=== PATIENT | male | born 1970 | race Caucasian/White ===

== ENCOUNTER 2016-08-28 01:22 | Emergency (ER) | payer SELFPAY ==
[~2016-08-28] VITALS: Ht 162.6 cm; Wt 68.9 kg
[2016-08-28] MEDS ORDERED: NKM (01:27)
[2016-08-28 01:35] VITALS: BP 123/61
[2016-08-28] MEDS ORDERED: ANUSOL-HC25 MG RECTAL (02:10)
[2016-08-28] MEDS ORDERED: TRAMADOL HCL50 MG ORAL (02:10)
--- NOTE | 2016-08-28 02:11 | Emergency Room Report ---
History of Present Illness General Chief Complaint: Pain Source: Patient Present Illness HPI Is a 46-year-old male with no past medical history. He presents with a rectal mass and pain for the last day. No fever chills but no nausea no vomiting. Pain is 8/10. Worse with bowel movement. Similar symptom in the past. Said he had rectal prolapse before. Allergies: Coded Allergies: No Known Allergies (Unverified , 08/28/16) Patient History Past Medical History: none, see triage record, old chart reviewed Past Surgical History: other Pertinent Family History: none Social History: Denies: smoking Immunizations: other Reviewed Nursing Documentation: PMH: Agreed, PSxH: Agreed Nursing Documentation-PMH Past Medical History: No Stated History Review of Systems Eye: Denies: blurred vision, eye pain ENT: Denies: ear pain, nose congestion, throat swelling Respiratory: Denies: cough, shortness of breath Cardiovascular: Denies: chest pain, palpitations Gastrointestinal: Denies: abdominal pain, diarrhea, nausea, vomiting Musculoskeletal: Denies: back pain, joint pain Skin: Denies: rash Neurological: Denies: headache, numbness Endocrine: Denies: increased thirst, increased urine Hematologic/Lymphatic: Denies: easy bruising All Other Systems: negative except mentioned in HPI Physical Exam Vital Signs Date Time Temp Pulse Resp B/P Pulse Ox O2 Delivery O2 Flow Rate FiO2 08/28/16 01:27 97.9 83 16 123/61 97 Room Air vitals normal Sp02 EP Interpretation: reviewed, normal General Appearance: well appearing, no apparent distress, alert Head: normocephalic, atraumatic Eyes: bilateral eye EOMI, bilateral eye PERRL ENT: hearing grossly normal, normal pharynx Neck: full range of motion, supple, no meningismus Respiratory: chest non-tender, lungs clear, normal breath sounds Cardiovascular #1: regular rate, rhythm, no murmur Gastrointestinal: normal bowel sounds, non tender, no mass, no organomegaly, no bruit, non-distended Rectal: other - Large external hemorrhoid. 2-3 cm thrombosed internal hemorrhoid. Tender to palpation. Musculoskeletal: back normal, gait/station normal, normal range of motion Psychiatric: mood/affect normal Skin: warm/dry Procedures Additional Procedure Procedure Narrative Procedure: Excision of thrombosed hemorrhoid Indication: Thrombosed hemorrhoid Description: A clean area with Betadine. Local anesthetic 1% lidocaine without epinephrine. I made an incision of 1 cm. I expressed several small clots. Patient tolerated procedure without a problem. Medical Decision Making Diagnostic Impression: Primary Impression: Internal thrombosed hemorrhoids ER Course Patient with a thrombosed hemorrhoid. No evidence of rectal prolapse. We'll discharge him with surgical consultation. May need definitive surgical excision. Last Vital Signs Date Time Temp Pulse Resp B/P Pulse Ox O2 Delivery O2 Flow Rate FiO2 08/28/16 01:35 97.9 87 16 123/61 97 Room Air Status: improved Disposition: HOME, SELF-CARE Condition: Stable Scripts Tramadol Hcl* (ULTRAM*) 50 Mg Tablet 50 MG ORAL Q6H Y for For Pain, #20 TAB 0 Refills Prov: YAKOV TRUJILLO M.D. 08/28/16 Hydrocortisone Acetate* (ANUSOL-HC*) 25 Mg Supp.rect 1 SUPP RECTAL TWICE A DAY, #14 SUPP Prov: YAKOV TRUJILLO M.D. 08/28/16 Referrals: NOT CHOSEN [facility]/,REFERRING (PCP) Additional Instructions: Followup with your DrMeir for surgical referral. Followup within a week. Return if symptom worsen. You may experience some rectal bleeding. YAKOV TRUJILLO M.D. Aug 28, 2016 02:11
[2016-08-28 02:15] VITALS: BP 123/61
== END 2016-08-28 02:15 | disposition home or self-care (01) ==
LOC: EMR 01:48
DX: K64.5 Perianal venous thrombosis (principal)

== ENCOUNTER 2016-11-09 01:43 | Emergency (ER) | payer SELFPAY ==
[~2016-11-09] VITALS: Ht 165.1 cm; Wt 69.9 kg
[~2016-11-09 01:43] MED LIST: ANUSOL-HC25 MG RECTAL; NKM; TRAMADOL HCL50 MG ORAL
--- NOTE | 2016-11-09 02:25 | Emergency Room Report ---
History of Present Illness General Chief Complaint: Male Urogenital Problems Source: Patient Present Illness HPI Patient initially presents with complaints of burning with urination However after further questioning patient reports that he has several lesions on his penis that he was concern about He noticed a lesions about several days ago Patient reports that he had sexual contact with a female Denies any dysuria or frequency Denies any testicular pain Lesions appear to be mainly in the area of the head of the penis Mild itching is noted denies any fevers or chills denies any abdominal pain Allergies: Coded Allergies: No Known Allergies (Unverified , 08/28/16) Patient History Past Medical History: see triage record Pertinent Family History: none Reviewed Nursing Documentation: PMH: Agreed, PSxH: Agreed Nursing Documentation-PMH Past Medical History: No Stated History Review of Systems All Other Systems: negative except mentioned in HPI Physical Exam Vital Signs Date Time Temp Pulse Resp B/P Pulse Ox O2 Delivery O2 Flow Rate FiO2 11/09/16 01:57 98.2 82 16 121/78 97 Room Air Sp02 EP Interpretation: reviewed, normal General Appearance: well appearing, no apparent distress Head: normocephalic, atraumatic Eyes: bilateral eye EOMI, bilateral eye PERRL ENT: normal pharynx Neck: supple Respiratory: lungs clear, normal breath sounds Cardiovascular #1: regular rate, rhythm Gastrointestinal: non tender, soft Genitourinary: other - Several lesions noted on the head of the penis, mild scab formation, mild erosion on 2 areas, no obvious a raised blister formation Musculoskeletal: normal inspection Neurologic: alert, oriented x3 Skin: other - as above Lymphatic: no adenopathy Medical Decision Making Diagnostic Impression: Primary Impression: Dermatitis Additional Impression: Rash and nonspecific skin eruption ER Course Patient did not provide a urine sample However the exam is concerning for possible syphilis versus a fungal type infection Patient was given penicillin IM for appropriate coverage That this and will be placed on medicine for home And requires close outpatient followup Chest X-Ray Diagnostic Results Chest X-Ray Ordered: No Last Vital Signs Date Time Temp Pulse Resp B/P Pulse Ox O2 Delivery O2 Flow Rate FiO2 11/09/16 01:57 98.2 82 16 121/78 97 Room Air Status: improved Disposition: HOME, SELF-CARE Condition: Improved Scripts Clotrimazole* (LOTRIMIN*) 15 Gm Cream..g. 1 APPLIC TOPIC TWICE A DAY for 5 Days, Prov: SUSAN LANGFORD D.O. 11/09/16 Referrals: NOT CHOSEN [facility],REFERRING (PCP) Additional Instructions: Patient is provided with the discharge instructions notified to follow up with primary doctor in the next 2-3 days otherwise return to the er with any worsening symptoms. Please note that this report is being documented using DRAGON technology. This can lead to erroneous entry secondary to incorrect interpretation by the dictating instrument. SUSAN LANGFORD D.O. Nov 09, 2016 02:25
[2016-11-09] MEDS ORDERED: Bicillin LA 2,400,000 units IM ONE (02:30)
[2016-11-09] MEDS ORDERED: CLOTRIMAZOLE15 GM TOPIC (02:48)
[2016-11-09 02:54] VITALS: BP 121/78
== END 2016-11-09 02:55 | disposition home or self-care (01) ==
LOC: EMR 02:20
DX: L30.9 Dermatitis, unspecified (principal); N48.9 Disorder of penis, unspecified; R23.4 Changes in skin texture
CPT/HCPCS: 96372; 99283